=== PATIENT | female | born 1965 | race Caucasian/White ===

== ENCOUNTER → 2017-10-10 | Day surgery (SDC) | payer BC ==
[~2017-10-10] MED LIST: FENTANYL CITRATE/PF 100MCG/2 ML INJ ONE; GLUCAGON FOR INJ 1 MG VIAL ONE; LIDOCAINE HCL 2% LOCAL INJ 5 ML SDV VIAL INJ ONE; MIDAZOLAM HCL 2 MG/2 ML VIAL ONE; MINIVELLE PATCH PO; PANTOPRAZOLE SO40 MG PO; PROGESTERONE100 MG; PROPOFOL IV EMULSION 10 MG/ML 50 ML VIAL ONE; SYNTHROID50 MCG PO
--- NOTE | 2017-10-10 09:46 | Operative Report ---
DATE OF PROCEDURE: October 10, 2017 REFERRING PHYSICIAN: Dr. Cheri Ruiz PROCEDURE PERFORMED: EGD with polypectomy and biopsies and a colonoscopy with polypectomy. INDICATIONS FOR EGD: History of heartburn and indigestion. INDICATIONS FOR COLONOSCOPY: Colorectal cancer screening. MEDICATION: Patient was done under MAC. Please see anesthesiologist's note. PROCEDURE: With patient in the left lateral decubitus position, flexible fiberoptic Olympus gastroscope was introduced into the esophagus under direct visualization without any difficulty. There was some patchy erythema noted in distal esophagus. Minute tongues of velvety red mucosa were noted to extend proximally from the GE junction and biopsies were obtained to rule out Adams's. The scope was then advanced with ease into the stomach traversing a small sliding hiatal hernia. Mucosa overlying the antrum and the body revealed some patchy erythema and low-grade edema and biopsies were obtained and sent to stain for H. pylori. Some hyperplastic appearing polyps were noted in the body of the stomach and some were partially excised with cold biopsy forceps. The pylorus was of normal contour and shape. Was intubated with ease and the scope was advanced all the way to the 2nd portion of the duodenum. The scope was then withdrawn slowly and there a patchy area in the proximal 2nd portion where the duodenal folds appeared somewhat flattened out and some faint nodularity biopsies were obtained to rule out sprue. The mucosa overlying the duodenal bulb appeared to be within normal limits. The scope was then withdrawn back into the stomach and retroflexed and mucosa overlying the fundus and the cardia appeared to be within normal limits. The scope was then straightened out. The stomach was decompressed. The scope was subsequently withdrawn. Patient tolerated procedure well. IMPRESSION: 1. Distal esophagitis. 2. Rule out Adams's. 3. Small sliding hiatal hernia. 4. Gastritis biopsied. Biopsy sent to stain for H. pylori. 5. Gastric polyps, body, some were partially excised with cold biopsy forceps. PLAN: Follow up histology. Increase Protonix to 40 mg a.c. b.i.d. PROCEDURE: Patient was then turned around and after adequate lubrication of the anal canal, a flexible fiberoptic Olympus colonoscope was inserted into the rectum with ease and advanced all the way to the cecum. It was then withdrawn slowly. Mucosa overlying the cecum, ascending colon, transverse colon and descending colon appeared to be within normal limits. One polyp was snared from the sigmoid colon. The mucosa overlying the rectum appeared to be within normal limits. The scope was then retroflexed into the distal rectum. Small internal hemorrhoids were noted, none of which was actively bleeding. The scope was then straightened out. The rectosigmoid area as well as the distal rectal area were decompressed. The scope was subsequently withdrawn. Patient tolerated the procedure well. IMPRESSION: 1. Sigmoid colon polyp snared. 2. Internal hemorrhoids, none actively bleeding. PLAN: Follow up histology. Initiate high-fiber, low-fat diet. Initiate high-fiber supplement. Patient will need a followup colonoscopy in 3 years. Job#: [id number] cc:CHERI RUIZ DO
== END | disposition home or self-care (01) ==
LOC: OR 06:05
PROVIDERS: ATTEND Internal Medicine Gastroenterology
DX: Z12.11 Encounter for screening for malignant neoplasm of colon (principal); D12.5 Benign neoplasm of sigmoid colon; K31.7 Polyp of stomach and duodenum; K29.50 Unspecified chronic gastritis without bleeding; K20.9 Esophagitis, unspecified; K21.9 Gastro-esophageal reflux disease without esophagitis; K31.89 Other diseases of stomach and duodenum; K44.9 Diaphragmatic hernia without obstruction or gangrene; K64.8 Other hemorrhoids; E03.9 Hypothyroidism, unspecified; Z01.810 Encounter for preprocedural cardiovascular examination
CPT/HCPCS: 43239; 45385; 93005; J1610; J2001; J2250; 45378